=== PATIENT | female | born 1995 | race African-American/Black ===

== ENCOUNTER 2018-11-01 02:32 | Emergency (ER) | payer MEDICAID ==
[~2018-11-01] VITALS: Ht 177.8 cm; Wt 79.4 kg
[2018-11-01] MEDS ORDERED: ALBUTEROL SULF 2.5 MG/0.5ML(0.5%) NEB SOLN NEB ONE ×2 (02:45→04:45)
[2018-11-01] MEDS ORDERED: IPRATROPIUM BROM 0.5 MG/2.5ML INH SOL NEB ONE ×2 (02:45→04:45)
[2018-11-01] MEDS ORDERED: ALUM & MAG HYDROX-SIMETH LIQ(MAALOX) 30 ML PO ONE (04:30)
[2018-11-01] MEDS ORDERED: methylPREDNISolone SOD SUCC 125 MG/2 ML VL IV ONE (04:30)
[2018-11-01 06:16] VITALS: BP 155/71
== END 2018-11-01 06:25 | disposition home or self-care (01) ==
LOC: ER 02:32
DX: J45.909 Unspecified asthma, uncomplicated (principal); E66.9 Obesity, unspecified; Z68.25 Body mass index [BMI] 25.0-25.9, adult
CPT/HCPCS: 71045; 94640; 96374; 99284; J2930; J7611; J7644

== ENCOUNTER 2019-01-08 08:15 | Emergency (ER) | payer MEDICAID ==
[~2019-01-08] VITALS: Ht 175.3 cm; Wt 124.7 kg
[2019-01-08 08:22] VITALS: BP 142/81
[2019-01-08] MEDS ORDERED: methylPREDNISolone SOD SUCC 125 MG/2 ML VL IM ONE (08:45)
[2019-01-08] MEDS ORDERED: ALBUTEROL SULF 2.5 MG/0.5ML(0.5%) NEB SOLN NEB ONE (08:45)
[2019-01-08] MEDS ORDERED: IPRATROPIUM BROM 0.5 MG/2.5ML INH SOL NEB ONE (08:45)
== END 2019-01-08 09:50 | disposition home or self-care (01) ==
LOC: ER 08:15
DX: J45.901 Unspecified asthma with (acute) exacerbation (principal); Z90.89 Acquired absence of other organs
CPT/HCPCS: 94640; 96372; 99283; J2930; J7611; J7644